=== PATIENT | male | born 1960 | race Caucasian/White ===

== ENCOUNTER → 2019-06-10 | Outpatient (CLI) | payer OTHER ==
--- NOTE | 2019-06-10 17:12 | REP ---
MRI LEFT KNEE: TECHNIQUE: Axial proton density fat saturation, sagittal proton density T2 STIR, water excitation, coronal proton density, proton density fat saturation. The menisci are intact with no evidence of a meniscal tear. The cruciate and collateral ligaments are intact. The extensor mechanism is intact. However there appears to be mild thickening and peritendinous edema of the patellar tendons suggesting mild patellar tendonitis. There is moderate diffuse chondromalacia predominately along the weightbearing surfaces of the femoral condyles. No osteochondral defect is seen. There is no bone marrow edema or occult fracture. There is a mild joint effusion. No popliteal cyst is seen. Medial and lateral patellar retinacula are intact. IMPRESSION: No meniscal tear. Cruciate and collateral ligaments are intact. Findings suggesting patellar tendonitis. Moderate chondromalacia along the femoral condyles. Small joint effusion. Electronically Signed by Amando Hernandez MD 06/10/2019 06:55 P
--- NOTE | 2019-06-10 18:01 | REP ---
MRI RIGHT SHOULDER: TECHNIQUE: Axial T2 fat sat, gradient echo, sagittal oblique T2 fat sat, coronal oblique T1, T2 fat sat. There is increased signal extending through a portion of the bursal surface of the supraspinatus tendon anteriorly consistent with a partial thickness tear. Other rotator cuff tendons are intact. There are mild hypertrophic degenerative changes of the acromioclavicular joint with mild fluid in the joint. Acromion is downward sloping and type 2. Biceps tendon is within the bicipital groove without significant tenosynovitis. There is no Hill Sach's deformity. No abnormal signal is seen in the deltoid muscle. There is fraying of the biceps labral complex and superior labrum. Otherwise no discrete labral tear is seen. There is no paralabral cyst. Subchondral cystic changes are seen in the superior humeral head laterally. There is no bone marrow edema or occult fracture. There is a normal amount of joint fluid. A tiny amount of fluid is seen in the subacromial, subdeltoid bursae. IMPRESSION: Partial bursal surface tear anterior supraspinatus tendon. Mild hypertrophic degenerative changes of the acromioclavicular joint. Acromion is downward sloping and type 2. There is diffuse fraying of the superior labrum and biceps labral complex. Otherwise no discrete labral tear is seen. Subchondral cystic change of the superolateral humeral head. Electronically Signed by Amando Hernandez MD 06/10/2019 06:56 P
== END ==
LOC: M RAD 14:10
PROVIDERS: ATTEND Orthopaedic Surgery Sports Medicine
DX: M17.12 Unilateral primary osteoarthritis, left knee (principal); M19.011 Primary osteoarthritis, right shoulder; M25.462 Effusion, left knee; M71.22 Synovial cyst of popliteal space [Baker], left knee